=== PATIENT | male | born 1990 | race Caucasian/White ===

== ENCOUNTER 2018-09-15 13:54 | Day surgery (SDC) | payer OTHER, SELFPAY ==
[2018-09-07 09:09] VITALS: BMI 37.3
[2018-09-15] VITALS (7 sets, daily range): BP systolic 110–129; BP diastolic 57–84; PULSE 70–88; RESP 18–20; TEMP 36.2–36.7; O2SAT 93–98; BMI 37.3
--- NOTE | 2018-09-15 | DI.RAD.S_ITS ---
PROCEDURE: XR LUMBAR SPINE 2-3V INDICATIONS: Microdiscectomy L4-5 TECHNIQUE: 4 views of the lumbar spine were acquired. COMPARISON: None. FINDINGS: 4 spot fluoroscopic intraoperative images demonstrating surgical instrument in the posterior paraspinal soft tissues with the tip projecting at the L4-L5 disc space. Dictated by: Garth Ortiz M.D. on 09/16/2018 at 14:01 Approved by: Garth Ortiz M.D. on 09/16/2018 at 14:02
[2018-09-15] MEDS: LACTATED RINGERS 1,000 ML 42 ML IV (14:52)
[2018-09-15] MEDS: ACETAMINOPHEN 325 MG TABLET 650 MG PO (15:06)
--- NOTE | 2018-09-15 15:36 | PM.PREOP ---
Pre-operative Note Interval Note History & Physical reviewed/Exam performed by Physician: Yes Changes to H&P: No
[2018-09-15] MEDS: CEFAZOLIN VIAL 3 GM in SODIUM CHLORIDE 0.9% 100 ML 200 ML IV (16:08)
[2018-09-15] MEDS: CEFAZOLIN 2 GM/100 ML FROZ.PIGGY IV (16:08)
--- NOTE | 2018-09-15 16:31 | SUR.OPER ---
Prone on spine table, head in foam head support, padded chest and pelvic supports, gel pad at knees, lower legs supported by pillows; nipples, genitalia and toes free of pressure, arms secured on foam padded arm boards at <90 degrees abduction. Tape over blanket at thigh secured to table.
[2018-09-15] MEDS: methylPREDNISolone acet DEPO 40 MG/ML VIAL IM (16:43)
[2018-09-15] MEDS: BUPIVACAINE 0.25% W/ EPI 30 ML VIAL INJ (16:43)
--- NOTE | 2018-09-15 17:19 | P.OP_ITS ---
Operative Date/Time/Diagnoses Date of procedure: 09/15/18 Time of procedure: 16:17 Pre-op diagnosis: 1. L4-5 disc herniation 2. L4-5 spinal stenosis Post-op diagnosis: same Procedure & Clinicians Procedure: 1. L4-5 left microdiscectomy 2. Utilization of microsurgical technique and operating microscope Same procedure as scheduled: Yes Indications: Patient has been having chronic back pain and worsening lumbar radiculopathy. Patient failed multiple conservative management with worsening pain weakness and numbness in her lower extremity. Patient has been having difficulty performing activity of daily living. After discussing risks benefits of treatment options, patient elected proceed with surgery. Surgeon: Juan Jose Araujo Guest Experience Specialist: Jenna Hair Click Yes if Unassisted: No Anesthesia Type: General Operative Notes Closure Type: primary Specimen(s): none sent Estimated Blood Loss (mL): 10 Blood products transfused: none Procedure in detail: Patient was seen in the preoperative area. Risks and benefits of the surgery was discussed with the patient. Informed consent was obtained from the patient and placed in the chart. Surgical site was marked. Patient was taken to the operative room. General anesthesia was administered. Prophylactic antibiotic was given to the patient less than 30 min before the incision was made. Patient was placed into a prone position on the Matt table. Patient's back was then prepped and draped in the sterile fashion. Time- out was performed at this time. Using AP and lateral C-arm imaging the interval between L4-5 was identified and marked on patient's back. A 1 inch incision 1 in from midline was made on the left side. The fascia was incised in line with skin incision. Globus MARS retractors was placed inside the incision and docked onto the L4 lamina. Using microsurgical technique and operating microscope, a L4 laminotomy was performed using a Kerrison rongeur. Liagamentum flavum was resected at the site of the laminotomy. The disc space at L4-5 was identified. Microdiscectomy was performed by incising the annulus with #11 blade. Microcurettes and pituitary was used to removed herniated disc fragments of disc from the epidural space. After the microdiskectomy was completed, the area medial lateral superior and inferior to the area of the microdiskectomy was inspected and explored using a micro curette. No other impinging structure was identified. The wound was then irrigated with sterile normal saline. 40 mg Depo-Medrol was placed into the epidural space. The deep fascia was closed with 1-0 Vicryl. The subcutaneous tissue was closed with 2-0 Vicryl. The skin was closed with 4-0 Monocryl. Patient tolerated the procedure well. There were no complications. Patient was transferred recovery room in stable condition. Complications: none Condition: stable Disposition: same day surgery Plan for aftercare: Discharge to home
[2018-09-15] MEDS: fentaNYL 100 MCG/2 ML INJ 50 MCG IV ×2 (17:32→17:37)
[2018-09-15] MEDS: KETOROLAC 30 MG/ML VIAL IV (17:36)
[2018-09-15] MEDS: HYDROMORPHONE 2 MG INJ 0.25 MG IV ×4 (17:44→18:00)
[2018-09-15] MEDS: OXYCODONE IR 5 MG TABLET PO (18:07)
[2018-09-15] MEDS: ONDANSETRON 4 MG/2 ML INJ IV (18:14)
--- NOTE | 2018-09-15 18:39 | SUR.PHASEII ---
pt. able to measurement superintendent own time and walk 15-20 feet without difficulty.
== END 2018-09-15 18:41 | disposition home or self-care (01) ==
PROVIDERS: Visit Provider Orthopaedic Surgery Orthopaedic Surgery of the Spine
PROC: (CPT 63030; principal; 2018-09-15 15:30)
DX: M51.16 Intervertebral disc disorders with radiculopathy, lumbar region (principal); M48.061 Spinal stenosis, lumbar region without neurogenic claudication; X50.9XXA Other and unspecified overexertion or strenuous movements or postures, initial encounter; Y93.H3 Activity, building and construction
CPT/HCPCS: 63030; 72100; 76000; J0690; J1030; J1100; J1170; J1885; J2405; J2704; J3010